=== PATIENT | female | born 1945 | race Caucasian/White ===

== ENCOUNTER 2016-06-25 15:45 | Outpatient (RCR) | payer OTHER | END 2016-07-01 | disposition home or self-care (01) | LOC: PTY 15:45 | PROVIDERS: ATTEND Internal Medicine | DX: S86.911A Strain of unspecified muscle(s) and tendon(s) at lower leg level, right leg, initial encounter (principal) | CPT/HCPCS: 97035; 97110; 97140; 97161; G0283 ==

== ENCOUNTER 2016-07-03 09:34 | Outpatient (RCR) | payer OTHER | END 2016-07-29 | disposition home or self-care (01) | LOC: PTY 09:34 | PROVIDERS: ATTEND Internal Medicine | DX: S86.911A Strain of unspecified muscle(s) and tendon(s) at lower leg level, right leg, initial encounter (principal); X58.XXXA Exposure to other specified factors, initial encounter; Y93.9 Activity, unspecified; Y92.9 Unspecified place or not applicable | CPT/HCPCS: 97035; 97110; G0283 ==

== ENCOUNTER 2016-08-20 15:00 | Outpatient (RCR) | payer OTHER | END 2016-08-29 | disposition home or self-care (01) | LOC: PTY 15:00 | PROVIDERS: ATTEND Internal Medicine | DX: S86.911D Strain of unspecified muscle(s) and tendon(s) at lower leg level, right leg, subsequent encounter (principal); M79.605 Pain in left leg; S83.232D Complex tear of medial meniscus, current injury, left knee, subsequent encounter | CPT/HCPCS: 97035; 97110; G0283 ==

== ENCOUNTER 2016-09-03 14:40 | Outpatient (RCR) | payer OTHER | END 2016-09-28 | disposition home or self-care (01) | LOC: PTY 14:40 | PROVIDERS: ATTEND Internal Medicine | DX: S86.911D Strain of unspecified muscle(s) and tendon(s) at lower leg level, right leg, subsequent encounter (principal); M79.605 Pain in left leg; S83.232D Complex tear of medial meniscus, current injury, left knee, subsequent encounter; X58.XXXD Exposure to other specified factors, subsequent encounter | CPT/HCPCS: 97035; 97110; G0283 ==